=== PATIENT | female | born 2000 | race Caucasian/White ===

== ENCOUNTER 2019-09-03 20:32 | Emergency (ER) | payer MEDICAID ==
[2019-09-03 20:56] VITALS: BP 153/77; PULSE 97
--- NOTE | 2019-09-03 21:32 | EDM.PDOC ---
ED HPI GENERAL MEDICAL PROBLEM - General Chief Complaint: Abdominal Pain Stated Complaint: PELVIC PAIN Time Seen by Provider: 09/03/19 21:19 Source of Information: Reports: Patient History Limitations: Reports: No Limitations - History of Present Illness INITIAL COMMENTS - FREE TEXT/NARRATIVE: Patient presents for evaluation of lower abdomen/pelvic pain which began earlier in the morning today. She's never had pain like this before. She has a dull ache in the low central portion of the abdomen. Within the last couple of hours, she is also noticed sharp, needle like pains which seem to be focused into the vaginal region. She's had some thicker vaginal discharge over the last 2 days. No bleeding. She has a Nexplanon implant which has be in place for over one year. She is sexually active and last had intercourse approximately 1 week ago. There was no pain, discharge, bleeding associated with that intercourse episode. She took some ibuprofen several hours before presentation. No nausea or vomiting. No urinary frequency or dysuria. No fever or chills. 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 - Related Data Allergies Allergy/AdvReac Type Severity Reaction Status Date / Time No Known Allergies Allergy Verified 09/03/19 20:53 Home Meds: Home Meds NK [No Known Home Meds] 09/03/19 [History] Past Medical History - Past Health History Medical/Surgical History: Denies Medical/Surgical History Genitourinary History: Reports: Hydronephrosis, Renal Calculus - Infectious Disease History Infectious Disease History: Reports: Chicken Pox - Past Surgical History Female Surgical History: Reports: Lithotripsy/ESWL Social & Family History - Tobacco Use Smoking Status *Q: Never Smoker - Caffeine Use Caffeine Use: Reports: Tea Caffeine Use Comment: energy drinks a couple times a month, soda use daily - Recreational Drug Use Recreational Drug Use: No - Living Situation & Occupation Living situation: Reports: Single Occupation: Student ED ROS GENERAL - Review of Systems Review Of Systems: See Below Constitutional: Reports: No Symptoms Respiratory: Reports: No Symptoms Cardiovascular: Reports: No Symptoms GI/Abdominal: Reports: Abdominal Pain (Lower central pain), Other (Vaginal stabbing sensation over the last 4 hours, not present when other symptoms began. Thicker vaginal discharge.). Denies: Anorexia, Nausea, Vomiting : Reports: No Symptoms ED EXAM, GI/ABD - Physical Exam Exam: See Below Text/Narrative:: This is an adult female in no distress seated on the table in room 11. Exam Limited By: No Limitations General Appearance: Alert, No Apparent Distress Respiratory/Chest: No Respiratory Distress Cardiovascular: Regular Rate, Rhythm GI/Abdominal Exam: Soft, Tender (Minimal suprapubic region tenderness.). No: Abnormal Bowel Sounds (Female) Exam: Normal Bimanual Exam, Vaginal Discharge, Other (Speculum exam performed with JOSELYN Armstrong, as landscape painter shows an extensive amount of cheesy exudate in the posterior vaginal compartment. The cervix is normal-appearing. There are no vaginal side wall lesions. Swab for yeast, Trichomonas, Gardnerella was obtained.). No: Cervical Discharge, Cervix Motion Tenderness, Uterine Tenderness, Vaginal Lesions Psychiatric: Normal Affect Course - Vital Signs Last Recorded V/S: Last Vital Signs Temp 37.1 C 09/03/19 20:52 Pulse 97 09/03/19 20:52 Resp 18 09/03/19 20:52 BP 153/77 H 09/03/19 20:52 Pulse Ox 98 09/03/19 20:52 - Orders/Labs/Meds Labs: Laboratory Tests 09/03/19 Range/Units 21:02 Urine Color Yellow (YELLOW) Urine Appearance Cloudy A (CLEAR) Urine pH 7.0 (5.0-8.0) Ur Specific [place] >= 1.030 (1.008-1.030) Urine Protein Trace H (NEGATIVE) mg/dL Urine Glucose (UA) Negative (NEGATIVE) mg/dL Urine Ketones Negative (NEGATIVE) mg/dL Urine Occult Blood Large H (NEGATIVE) Urine Nitrite Negative (NEGATIVE) Urine Bilirubin Negative (NEGATIVE) Urine Urobilinogen 0.2 (0.2-1.0) EU/dL Ur Leukocyte Esterase Trace H (NEGATIVE) Urine RBC >100 H (0-5) Urine WBC 5-10 H (0-5) Ur Epithelial Cells Few Amorphous Sediment Not seen Urine Bacteria Moderate Urine Mucus Few - Re-Assessments/Exams Free Text/Narrative Re-Assessment/Exam: 09/03/19 23:38 Overall the clinical appearance is very reassuring. Speculum examination seems to fit with Shalini vaginitis. Vaginal swab eventually did show the same area although there is microscopic hematuria and a few white cells, the patient has no urinary symptoms. I will treat the Shalini vaginitis with Terazol vaginal cream nightly for 7 nights. She should avoid sex until symptoms are gone. We had a general discussion about causes and treatment of vaginal irritation. She was discharged in stable condition. Departure - Departure Time of Disposition: 22:38 Disposition: Home, Self-Care 01 Condition: Good Clinical Impression: Yeast vaginitis - Discharge Information *PRESCRIPTION DRUG MONITORING PROGRAM REVIEWED*: Not Applicable *COPY OF PRESCRIPTION DRUG MONITORING REPORT IN PATIENT SHANDRA: Not Applicable Instructions: Vaginal Yeast Infection, Adult Referrals: aJnki Castro CNM [Primary Care Provider] - Forms: ED Department Discharge Additional Instructions: Use vaginal yeast cream every night until gone. Avoid excessive washing or wiping and vaginal region. Recheck with primary care if not improved in one week. Do not have sex until symptoms go away. Sepsis Event Note - Evaluation Sepsis Screening Result: No Definite Risk - Focused Exam Vital Signs: Vital Signs Temp Pulse Resp BP Pulse Ox 09/03/19 20:52 37.1 C 97 18 153/77 H 98 Date Exam was Performed: 09/03/19 Time Exam was Performed: 23:28
== END 2019-09-03 22:51 | disposition home or self-care (01) ==
LOC: JP.ED 20:32
DX: B37.3 Candidiasis of vulva and vagina (principal)
CPT/HCPCS: 81001; 87210; 99284

== ENCOUNTER 2020-12-25 22:06 | Emergency (ER) | payer MEDICAID ==
--- NOTE | 2020-12-25 22:55 | EDM.PDOC ---
ED HPI GENERAL MEDICAL PROBLEM - General Chief Complaint: Cardiovascular Problem Stated Complaint: CHEST PAIN AND SOB Time Seen by Provider: 12/25/20 22:54 Source of Information: Reports: Patient, RN Notes Reviewed History Limitations: Reports: No Limitations - History of Present Illness INITIAL COMMENTS - FREE TEXT/NARRATIVE: 20-year-old female presents emergency department day complaint of chest pain and shortness of breath, she states it come on suddenly a couple hours prior she has felt nauseated all day no diaphoresis no cardiac history. She states her stress level is quite low no trouble with anxiety Middle Chest Pain Score (Numeric/FACES): 4 - Related Data Allergies Allergy/AdvReac Type Severity Reaction Status Date / Time No Known Allergies Allergy Verified 12/25/20 22:57 Home Meds: Home Meds NK [No Known Home Meds] 09/03/19 [History] Past Medical History Genitourinary History: Reports: Hydronephrosis, Renal Calculus - Infectious Disease History Infectious Disease History: Reports: Chicken Pox - Past Surgical History Female Surgical History: Reports: Lithotripsy/ESWL Social & Family History - Tobacco Use Tobacco Use Status *Q: Never Tobacco User - Caffeine Use Caffeine Use: Reports: Tea Caffeine Use Comment: energy drinks a couple times a month, soda use daily - Living Situation & Occupation Living situation: Reports: Single Occupation: Student ED ROS GENERAL - Review of Systems Review Of Systems: See Below Constitutional: Reports: No Symptoms HEENT: Reports: No Symptoms Respiratory: Reports: Shortness of Breath Cardiovascular: Reports: Chest Pain GI/Abdominal: Reports: Nausea : Reports: No Symptoms ED EXAM, GENERAL - Physical Exam Exam: See Below Exam Limited By: No Limitations General Appearance: Alert, WD/WN, No Apparent Distress Respiratory/Chest: No Respiratory Distress, Lungs Clear, Normal Breath Sounds, No Accessory Muscle Use, Chest Non-Tender Cardiovascular: Regular Rate, Rhythm, No Murmur GI/Abdominal: Soft, Non-Tender #1 Interpretation EKG Date: 12/25/20 Time: 22:55 Rhythm: NSR Adrian: Normal P-Wave: Present QRS: Normal ST-T: Normal QT: Normal Comparison: NA - No Prior EKG Course - Vital Signs Last Recorded V/S: Last Vital Signs Temp 98.9 F 12/25/20 22:57 Pulse 64 07/19/21 23:20 Resp 25 H 12/25/20 22:57 BP 123/69 12/25/20 23:20 Pulse Ox 97 12/25/20 22:57 - Orders/Labs/Meds Orders: Active Orders 24 hr Category Date Time Status Cardiac Monitoring [RC] .As Directed Care 12/25/20 23:04 Active EKG Documentation Completion [RC] ASDIRECTED Care 12/25/20 23:04 Active Chest 2V [CR] Stat Exams 12/25/20 23:04 Taken EKG 12 Lead [EK] Stat Ther 12/25/20 23:04 Ordered Labs: Laboratory Tests 12/25/20 12/25/20 Range/Units 23:20 23:20 WBC 6.1 (4.5-11.0) K/uL RBC 4.21 (3.30-5.50) M/uL Hgb 12.9 (12.0-15.0) g/dL Hct 38.2 (36.0-48.0) % MCV 91 (80-98) fL MCH 31 (27-31) pg MCHC 34 (32-36) % Plt Count 271 (150-400) K/uL Neut % (Auto) 55.9 (36-66) % Lymph % (Auto) 31.8 (24-44) % Gibson % (Auto) 9.8 H (2-6) % Eos % (Auto) 2.0 (2-4) % Baso % (Auto) 0.5 (0-1) % Sodium 142 (140-148) mmol/L Potassium 4.1 (3.6-5.2) mmol/L Chloride 105 (100-108) mmol/L Carbon Dioxide 27 (21-32) mmol/L Anion Gap 9.6 (5.0-14.0) mmol/L BUN 9 (7-18) mg/dL Creatinine 1.0 (0.6-1.0) mg/dL Est Cr Clr Drug Dosing 79.40 mL/min Estimated GFR (MDRD) > 60 (>60) Glucose 108 H (74-106) mg/dL Calcium 8.7 (8.5-10.1) mg/dL Troponin I < 0.017 (0.000-0.056) ng/mL Meds: Medications Discontinued Medications Generic Name Dose Route Start Last Admin Trade Name Freq PRN Reason Stop Dose Admin Aspirin 324 mg 12/25/20 23:04 12/25/20 23:29 Aspirin 81 Mg Tab.Chew PO 12/25/20 23:05 324 mg ONETIME ONE Administration Lorazepam 0.5 mg 12/25/20 23:05 12/25/20 23:29 Lorazepam 0.5 Mg Tab PO 12/25/20 23:06 0.5 mg ONETIME ONE Administration Departure - Departure Time of Disposition: 23:51 Disposition: Home, Self-Care 01 Condition: Fair Clinical Impression: Panic attack Instructions: Panic Attack, [id number] Referrals: Janki Castro CNM [Primary Care Provider] - Forms: ED Department Discharge Additional Instructions: Use the Ativan as needed when you have chest pain and shortness of breath, please followup with your primary care provider in 3-5 days if not better, please call return to the emergency department with worsening of symptoms. Sepsis Event Note (ED) - Focused Exam Vital Signs: Vital Signs Temp Pulse Resp BP Pulse Ox 12/25/20 23:20 64 123/69 12/25/20 22:57 98.9 F 79 25 H 129/75 97 12/25/20 22:49 98.9 F 79 25 H 129/75 97 - My Orders Last 24 Hours: My Active Orders 12/25/20 23:04 Cardiac Monitoring [RC] .As Directed EKG Documentation Completion [RC] ASDIRECTED Chest 2V [CR] Stat EKG 12 Lead [EK] Stat - Assessment/Plan Last 24 Hours: My Active Orders 12/25/20 23:04 Cardiac Monitoring [RC] .As Directed EKG Documentation Completion [RC] ASDIRECTED Chest 2V [CR] Stat EKG 12 Lead [EK] Stat Plan: Assessment Acuity = acute Site and laterality = panic attack Etiology = unknown Manifestations = shortness of breath chest pain now resolved Location of injury = Home Lab values = CBC, BMP, troponin all within normal limits EKG demonstrates a sinus rhythm with no ST elevations or depressions chest x-ray I did review films myself I cannot appreciate any acute process, the official read from radiology is pending Plan She had good relief half milligram Ativan prescription written for Ativan 1 mg p.o. 3 times daily as needed total #10 follow-up primary care 3 to 5 days This note was dictated using [employer] voice recognition software please call with any questions on syntax or grammar.
[2020-12-25] MEDS ORDERED: Aspirin 81 MG Tab.Chew PO ONE (23:04)
[2020-12-25] MEDS ORDERED: LORazepam 0.5 MG Tab PO ONE (23:05)
[2020-12-25 23:21] VITALS: BP 123/69; PULSE 64
--- NOTE | 2020-12-26 09:12 | CR ---
CHEST: 2 view CLINICAL HISTORY:Chest pain COMPARISON:None FINDINGS: The heart size, pulmonary vascularity and hilar structures are normal. No infiltrate effusion or pneumothorax is seen. IMPRESSION: No acute cardiopulmonary process.
== END 2020-12-26 | disposition home or self-care (01) ==
LOC: JP.ED 22:06
DX: F41.0 Panic disorder [episodic paroxysmal anxiety] (principal)
CPT/HCPCS: 36415; 71046; 80048; 84484; 85025; 93005; 99285; A9270

== ENCOUNTER 2021-02-19 03:31 | Emergency (ER) | payer MEDICAID ==
[2021-02-19 03:48] VITALS: BP 119/71; PULSE 75
--- NOTE | 2021-02-19 03:58 | EDM.PDOC ---
ED HPI GENERAL MEDICAL PROBLEM - General Chief Complaint: Abdominal Pain Stated Complaint: LOWER RIGHT ABDOMINAL PAIN Time Seen by Provider: 02/19/21 03:52 Source of Information: Reports: Patient History Limitations: Reports: No Limitations - History of Present Illness INITIAL COMMENTS - FREE TEXT/NARRATIVE: Zayra is a 20-year-old female presenting to the ED for evaluation of acute onset of right lower quadrant abdominal pain. The patient states that it awoke her from sleep about 1 hour prior to arrival. She reports having a diminished appetite but denies any vomiting. She does have some mild nausea. She denies any diarrhea or constipation. She is currently on day 4 of her menses. She has not had any fever or chills. She denies any loss of taste or smell. She denies sore throat, cough, shortness of breath, chest or back pain. She does have a history of kidney stones but states that this feels different. She does not have any urinary symptoms occluding urgency, frequency, or burning with urination. - Related Data Allergies Allergy/AdvReac Type Severity Reaction Status Date / Time No Known Allergies Allergy Verified 02/19/21 03:42 Home Meds: Home Meds NK [No Known Home Meds] 09/03/19 [History] Past Medical History - Past Health History Medical/Surgical History: Denies Medical/Surgical History Genitourinary History: Reports: Hydronephrosis, Renal Calculus - Infectious Disease History Infectious Disease History: Reports: Chicken Pox - Past Surgical History Female Surgical History: Reports: Lithotripsy/ESWL Social & Family History - Tobacco Use Tobacco Use Status *Q: Never Tobacco User - Caffeine Use Caffeine Use: Reports: None Caffeine Use Comment: energy drinks a couple times a month, soda use daily - Living Situation & Occupation Living situation: Reports: Single Occupation: Student ED ROS GENERAL - Review of Systems Review Of Systems: See Below Constitutional: Reports: Decreased Appetite HEENT: Reports: No Symptoms Respiratory: Reports: No Symptoms Cardiovascular: Reports: No Symptoms Endocrine: Reports: No Symptoms GI/Abdominal: Reports: Abdominal Pain (Right lower quadrant abdominal pain), Decreased Appetite, Nausea. Denies: Constipation, Diarrhea, Vomiting : Denies: Dysuria, Flank Pain, Frequency, Urgency Musculoskeletal: Reports: No Symptoms Skin: Reports: No Symptoms Neurological: Reports: No Symptoms Psychiatric: Reports: No Symptoms Hematologic/Lymphatic: Reports: No Symptoms Immunologic: Reports: No Symptoms ED EXAM, GI/ABD - Physical Exam Exam: See Below Exam Limited By: No Limitations General Appearance: Alert, No Apparent Distress Eyes: Bilateral: EOMI Throat/Mouth: Normal Inspection, Normal Oropharynx, Normal Voice, No Airway Compromise Head: Atraumatic, Normocephalic Neck: Normal Inspection, Supple, Non-Tender, Full Range of Motion. No: Lymphadenopathy (R), Lymphadenopathy (L) Respiratory/Chest: No Respiratory Distress, Lungs Clear, Normal Breath Sounds Cardiovascular: Normal Peripheral Pulses, Regular Rate, Rhythm, No Murmur GI/Abdominal Exam: Soft, Tender (Tenderness with palpation over the suprapubic and right lower quadrants), Abnormal Bowel Sounds (Decreased bowel sounds). No: Guarding, Rebound Back Exam: Normal Inspection, Full Range of Motion. No: CVA Tenderness (R), CVA Tenderness (L) Extremities: Normal Inspection, Normal Range of Motion, Normal Capillary Refill Neurological: Alert, Oriented, Normal Cognition, No Motor/Sensory Deficits Psychiatric: Normal Affect, Normal Mood Skin Exam: Warm, Dry, Intact, Normal Color Course - Vital Signs Last Recorded V/S: Last Vital Signs Temp 36.0 C L 02/19/21 03:46 Pulse 75 02/19/21 03:46 Resp 14 02/19/21 03:46 BP 119/71 02/19/21 03:46 Pulse Ox 98 02/19/21 03:46 - Orders/Labs/Meds Orders: Active Orders 24 hr Category Date Time Status Abdomen Pelvis w Cont [CT] Stat Exams 02/19/21 04:00 Ordered Sodium Chloride 0.9% [Saline Flush] Med 02/19/21 04:00 Ordered 10 ml FLUSH ASDIRECTED PRN Saline Lock Insert [OM.PC] Routine Oth 02/19/21 04:00 Ordered Medication Orders Sodium Chloride (Sodium Chloride 0.9% 10 Ml Syringe) 10 ml FLUSH ASDIRECTED PRN PRN Reason: Keep Vein Open Labs: Laboratory Tests 02/19/21 02/19/21 02/19/21 Range/Units 04:10 04:10 04:15 WBC 5.9 (4.5-11.0) K/uL RBC 4.42 (3.30-5.50) M/uL Hgb 13.6 (12.0-15.0) g/dL Hct 39.4 (36.0-48.0) % MCV 89 (80-98) fL MCH 31 (27-31) pg MCHC 35 (32-36) % Plt Count 271 (150-400) K/uL Neut % (Auto) 52.7 (36-66) % Lymph % (Auto) 33.7 (24-44) % Ramsey % (Auto) 9.8 H (2-6) % Eos % (Auto) 3.1 (2-4) % Baso % (Auto) 0.7 (0-1) % Sodium 141 (140-148) mmol/L Potassium 3.9 (3.6-5.2) mmol/L Chloride 103 (100-108) mmol/L Carbon Dioxide 29 (21-32) mmol/L Anion Gap 9.5 (5.0-14.0) mmol/L BUN 13 (7-18) mg/dL Creatinine 0.9 (0.6-1.0) mg/dL Est Cr Clr Drug Dosing 88.23 mL/min Estimated GFR (MDRD) > 60 (>60) Glucose 107 H (74-106) mg/dL Calcium 8.7 (8.5-10.1) mg/dL Total Bilirubin 0.3 D (0.2-1.0) mg/dL AST 21 (15-37) U/L ALT 58 D (12-78) U/L Alkaline Phosphatase 85 (46-116) U/L Total Protein 6.9 (6.4-8.2) g/dL Albumin 3.7 (3.4-5.0) g/dL Globulin 3.2 (2.3-3.5) g/dL Albumin/Globulin Ratio 1.2 (1.2-2.2) SARS CoV-2 RNA Rapid GABRIELLE Negative Meds: Medications Generic Name Dose Route Start Last Admin Trade Name Freq PRN Reason Stop Dose Admin Sodium Chloride 10 ml 02/19/21 04:00 Sodium Chloride 0.9% 10 Ml Syringe FLUSH ASDIRECTED PRN Keep Vein Open Discontinued Medications Generic Name Dose Route Start Last Admin Trade Name Freq PRN Reason Stop Dose Admin Sodium Chloride 85 mls @ 3.5 mls/sec 02/19/21 04:26 02/19/21 04:36 Normal Saline IV 09/13/21 04:27 3.5 mls/sec ASDIRECTED STA Administration Iopamidol 150 ml 02/19/21 04:25 02/19/21 04:36 Iopamidol 612 Mg/Ml 150 Ml Bottle IV 02/19/21 04:26 150 ml . DIRECTED STA Administration - Radiology Interpretation Free Text/Narrative:: I reviewed the images of the CT of the abdomen pelvis with contrast. Patient has a 2 mm stone in the lower pole of the right kidney and a 3 mm stone in the proximal ureter just below the renal pelvis. There is no hydronephrosis or hydroureter. Remainder of the abdominal CT looks unremarkable including a normal-appearing appendix, ovaries, gallbladder, pancreas, liver, and bowel - Re-Assessments/Exams Free Text/Narrative Re-Assessment/Exam: 02/19/21 05:05 I reviewed the patient's labs showing a normal CBC and comprehensive metabolic profile. Patient's Covid is negative. The CT of the abdomen and pelvis demonstrates a 2 mm stone in the right lower renal pole and a 3 mm stone in the proximal ureter just below the renal pelvis on the right. There is no hydronephrosis or hydroureter. This is likely the nidus for her pain. We will have her take 10 ounces of water every hour she is awake. We will treat nausea with Zofran 4 mg ODT every 8 hours as needed. The pain control mainly is good to be with Toradol 10 mg 4 times daily but I also included 8 tablets of hydrocodone 5/325 mg which she may take for breakthrough pain. Indications return to the ED were discussed. All questions were answered and patient is suitable for discharge in satisfactory condition. Departure - Departure Time of Disposition: 05:06 Disposition: Home, Self-Care 01 Clinical Impression: Right nephrolithiasis, Ureterolithiasis, Renal colic on right side - Discharge Information Instructions: Renal Colic, [id number], Kidney Stones, [id number], Nausea and Vomiting, Adult, [id number] Referrals: Marice Bradley CNM [Primary Care Provider] - Forms: ED Department Discharge Care Plan Goals: I am sending you home with Zofran for nausea, Toradol as the mainstay of your pain management and a small amount of hydrocodone for breakthrough pain. Please return if symptoms significantly worsen. Sepsis Event Note (ED) - Evaluation Sepsis Screening Result: No Definite Risk - Focused Exam Vital Signs: Vital Signs Temp Pulse Resp BP Pulse Ox 02/19/21 03:46 36.0 C L 75 14 119/71 98 - Problem List & Annotations (1) Renal colic on right side SNOMED Code(s): 3816278 Code(s): N23 - UNSPECIFIED RENAL COLIC Status: Acute Priority: High Current Visit: Yes (2) Right nephrolithiasis SNOMED Code(s): 48179994 Code(s): N20.0 - CALCULUS OF KIDNEY Status: Acute Priority: High Current Visit: Yes (3) Ureterolithiasis SNOMED Code(s): 43943549 Code(s): N20.1 - CALCULUS OF URETER Status: Acute Priority: High Current Visit: Yes - Problem List Review Problem List Initiated/Reviewed/Updated: Yes - My Orders Last 24 Hours: My Active Orders 02/19/21 04:00 Abdomen Pelvis w Cont [CT] Stat Sodium Chloride 0.9% [Saline Flush] 10 ml FLUSH ASDIRECTED PRN Saline Lock Insert [OM.PC] Routine - Assessment/Plan Last 24 Hours: My Active Orders 02/19/21 04:00 Abdomen Pelvis w Cont [CT] Stat Sodium Chloride 0.9% [Saline Flush] 10 ml FLUSH ASDIRECTED PRN Saline Lock Insert [OM.PC] Routine
[2021-02-19] MEDS: Iopamidol 612 MG/ML 150 ML Bottle IV STA (04:36)
[2021-02-19] MEDS: Sodium Chloride 0.9% 10 ML Syringe FLUSH PRN (05:25)
--- NOTE | 2021-02-19 05:42 | CRLCT ---
For Patients: As a result of the Century Cures Act, medical imaging exams and procedure reports are released immediately into your electronic medical record. You may view this report before your referring provider. If you have questions, please contact your health care provider. INDICATION: Right lower quadrant pain TECHNIQUE: CT abdomen and pelvis acquired with 150 cc Isovue 300 IV contrast. COMPARISON: April 23, 2016 FINDINGS: Lower chest: Unremarkable. Liver: Hepatic steatosis. Spleen: Unremarkable. Pancreas: Unremarkable. Gallbladder and bile ducts: Unremarkable. Adrenal glands: Unremarkable. Kidneys: Mild right hydronephrosis secondary to a 4 mm stone in the proximal right ureter. Additional stones are seen in both kidneys. GI tract: Unremarkable. Appendix is normal. Vascular structures: Unremarkable. Lymph nodes: Unremarkable. Miscellaneous: Unremarkable. No free air or significant free fluid. Pelvic Organs: Unremarkable. Bones: Unremarkable for age. IMPRESSION: Mild right hydronephrosis secondary to a 4 mm stone in the proximal right ureter. Additional stones are seen in both kidneys. Normal appendix. Hepatic steatosis. Please note that all CT scans at this facility use dose modulation, iterative reconstruction, and/or weight-based dosing when appropriate to reduce radiation dose to as low as reasonably achievable. Dictated by Patti James MD @ 02/19/2021 5:40:24 AM (Electronically Signed)
== END 2021-02-19 05:26 | disposition home or self-care (01) ==
LOC: JP.ED 03:31
DX: N13.2 Hydronephrosis with renal and ureteral calculous obstruction (principal); Z20.822 Contact with and (suspected) exposure to COVID-19
CPT/HCPCS: 36415; 74177; 80053; 85025; 99284-25; Q9967; U0002

== ENCOUNTER 2021-07-20 18:25 | Emergency (ER) | payer MEDICAID ==
[2021-07-20 19:00] VITALS: BP 126/67; PULSE 90
[2021-07-20] MEDS ORDERED: Ketorolac 30 MG/ML SDV IM ONE (20:53)
== END 2021-07-20 21:05 | disposition home or self-care (01) ==
LOC: JP.ED 18:25
DX: R07.89 Other chest pain (principal)
CPT/HCPCS: 36415; 71045; 85025; 93005; 93010; 99283; 99285-25

== ENCOUNTER 2021-11-04 21:24 | Emergency (ER) | payer MEDICAID ==
[2021-11-04 21:36] VITALS: BP 145/82; PULSE 116
[2021-11-04] MEDS ORDERED: Diphtheria,Pertussis(Acell),Tetanus Vaccine 0.5 ML Syringe IM ONE (22:01)
[2021-11-04] MEDS ORDERED: Bacitracin Oint 1 GM U/D Packet TOP ONE (22:34)
== END 2021-11-04 23:10 | disposition home or self-care (01) ==
LOC: JP.ED 21:24
DX: S81.011A Laceration without foreign body, right knee, initial encounter (principal); Z23 Encounter for immunization; Z79.899 Other long term (current) drug therapy; W18.39XA Other fall on same level, initial encounter
CPT/HCPCS: 12005; 90471; 90715; 99282-25

== ENCOUNTER 2022-05-30 16:21 | Inpatient (IN) | payer MEDICAID ==
[2022-05-30 18:50] LABS: ESTIMATED GFR 106 mL/min (>60)
[2022-05-30] MEDS ORDERED: HYDROmorphone 0.5 MG/0.5 ML Syringe IVPUSH ONE (19:22)
[2022-05-30] MEDS ORDERED: Lactated Ringers 1,000 ML IV SCH (19:30)
[2022-05-30] MEDS ORDERED: Ondansetron 4 MG Tab.DIS PO PRN (21:18)
[2022-05-30] MEDS ORDERED: Nicotine 14 MG/24 Hr Patch TRDERM PRN (21:18)
[2022-05-30] MEDS ORDERED: Ondansetron 4 MG/2 ML SDV IV PRN (21:18)
[2022-05-30] MEDS: Escitalopram 10 MG Tab PO SCH (21:39)
[2022-05-31] MEDS: HYDROmorphone 0.5 MG/0.5 ML Syringe IVPUSH PRN ×2 (02:32→10:25)
[2022-05-31] MEDS: Lactated Ringers 1,000 ML IV SCH ×2 (03:50→10:28)
[2022-05-31 05:36] LABS: ESTIMATED GFR 106 mL/min (>60)
[2022-05-31] MEDS: Tamsulosin 0.4 MG Cap.ER PO SCH (08:45)
[2022-05-31] MEDS ORDERED: Sodium Chloride 0.9% 1,000 ML IV SCH (10:45)
[2022-05-31] MEDS: Acetaminophen 325 MG Tab PO PRN ×2 (14:05→20:04)
[2022-05-31] MEDS: Escitalopram 10 MG Tab PO SCH (20:05)
[2022-06-01] MEDS: Acetaminophen 325 MG Tab PO PRN (04:56)
[2022-06-01 07:55] VITALS: BP 124/63; PULSE 74
[2022-06-01] MEDS: Tamsulosin 0.4 MG Cap.ER PO SCH (08:45)
== END 2022-06-01 11:50 | disposition home or self-care (01) | DRG 440 ==
LOC: JP.ED 16:21 → JP.MS 20:08
PROVIDERS: ADMIT Hospitalist; ATTEND Hospitalist
DX: K85.90 Acute pancreatitis without necrosis or infection, unspecified (principal); N20.0 Calculus of kidney; F41.9 Anxiety disorder, unspecified; Z20.822 Contact with and (suspected) exposure to COVID-19; E66.9 Obesity, unspecified; Z68.38 Body mass index [BMI] 38.0-38.9, adult
CPT/HCPCS: 36415; 76705; 80048; 80053; 80061; 83690; 85025; 85027; 96361; 96374; 99285-25; A9270-GY; J1170; J7030; J7120; U0002

== ENCOUNTER 2022-09-19 06:41 | Day surgery (SDC) | payer MEDICAID ==
[2022-09-19] MEDS ORDERED: Bupivacaine 0.5% 50 ML MDV ONE (06:50)
[2022-09-19] MEDS ORDERED: Lidocaine 1% with EPINEPHrine 1:100,000 50 ML MDV ONE (06:50)
[2022-09-19] MEDS ORDERED: Sodium Chloride 0.9% 1,000 ML IV SCH (07:00)
[2022-09-19] MEDS ORDERED: Indocyanine Green 25 MG SDV IV ONE (07:00)
[2022-09-19] MEDS ORDERED: ceFAZolin 2 GM in Premix Bag 1 BAG IV ONE (07:00)
[2022-09-19] MEDS ORDERED: metroNIDAZOLE/Normal Saline 500 MG in Premix Bag 1 BAG IV ONE (07:00)
[2022-09-19 07:24] LABS: ESTIMATED GFR 105 mL/min (>60)
[2022-09-19] MEDS ORDERED: Dexamethasone 4 MG/ML SDV ONE (07:37)
[2022-09-19] MEDS ORDERED: fentaNYL 250 MCG/5 ML SDV ONE ×2 (07:37→08:02)
[2022-09-19] MEDS ORDERED: Glycopyrrolate 0.2 MG/ML 5 ML MDV ONE ×2 (07:37→08:17)
[2022-09-19] MEDS ORDERED: Rocuronium 50 MG/5 ML Vial ONE (07:37)
[2022-09-19] MEDS ORDERED: Propofol 200 MG/20 ML SDV ONE (07:37)
[2022-09-19] MEDS ORDERED: Ondansetron 4 MG/2 ML SDV ONE (07:37)
[2022-09-19] MEDS ORDERED: Neostigmine Methylsulfate 1 MG/ML 5 ML Syringe ONE (07:37)
[2022-09-19] MEDS ORDERED: Ropivacaine 50 ML, dexAMETHasone 8 MG, EPINEPHrine 0.4 MG, Sodium Chloride 0.9% 27.6 ML NERVRT SCH ×4 (07:45)
[2022-09-19] MEDS ORDERED: Acetaminophen/HYDROcodone 325-5 MG Tab PO PRN (07:51)
[2022-09-19] MEDS ORDERED: Docusate Sodium 100 MG Cap PO PRN (07:51)
[2022-09-19] MEDS ORDERED: fentaNYL 100 MCG/2 ML SDV IVPUSH PRN ×3 (07:51)
[2022-09-19] MEDS ORDERED: Ondansetron 4 MG/2 ML SDV IVPUSH PRN (07:51)
[2022-09-19] MEDS ORDERED: Zolpidem 5 MG Tab PO PRN (07:51)
[2022-09-19] MEDS ORDERED: Benzocaine/Cetylpyridinium/Menthol Lozenge MUCMEM PRN (07:51)
[2022-09-19] MEDS ORDERED: Bupivacaine 0.5% 50 ML MDV INJECT ONE ×2 (08:18)
[2022-09-19] MEDS ORDERED: Lidocaine 1% with EPINEPHrine 1:100,000 20 ML MDV INJECT ONE ×2 (08:18)
[2022-09-19] MEDS ORDERED: Scopolamine 1.5 MG Transdermal Patch TOP SCH (09:00)
[2022-09-19] MEDS ORDERED: hydrOXYzine HCl 50 MG/ML SDV IM ONE (09:08)
[2022-09-19] MEDS ORDERED: fentaNYL 50 MCG/ML SDV IVPUSH ONE (09:20)
[2022-09-19 13:03] VITALS: BP 136/74; PULSE 105
== END 2022-09-19 13:45 | disposition home or self-care (01) ==
LOC: JP.SDS 06:41 → EDSTATUS 10:30 → JP.SDS 13:45
PROVIDERS: ATTEND Surgery
DX: K81.1 Chronic cholecystitis (principal); K82.8 Other specified diseases of gallbladder; E66.01 Morbid (severe) obesity due to excess calories; Z68.38 Body mass index [BMI] 38.0-38.9, adult
CPT/HCPCS: 36415; 47562; 80053; 81025; 85027; 88304; A9270; J0171; J0690; J1100; J2405; J2704; J2710; J2795; J3010; J3410; J3490; J7030

== ENCOUNTER 2024-02-13 11:07 | Emergency (ER) | payer MEDICAID ==
[2024-02-13 11:20] VITALS: BP 133/94; PULSE 63
[2024-02-13] MEDS: Ketorolac 15 MG/ML SDV IM ONE (11:48)
== END 2024-02-13 12:13 | disposition home or self-care (01) ==
LOC: JP.ED 11:07
DX: K08.89 Other specified disorders of teeth and supporting structures (principal); E66.9 Obesity, unspecified; Z79.2 Long term (current) use of antibiotics; Z79.899 Other long term (current) drug therapy; Z68.38 Body mass index [BMI] 38.0-38.9, adult
CPT/HCPCS: 96372; 99282; J1885; 99283